=== PATIENT | female | born 1975 | race Caucasian/White ===

== ENCOUNTER 2016-08-21 12:54 | Inpatient (IN) | payer SELFPAY ==
[2016-08-21] MEDS ORDERED: NORMAL SALINE 1000 ML 1,000 ML IV ONE (13:00)
[2016-08-21] MEDS ORDERED: ONDANSETRON HCL INJ/PF 4 MG/2 ML SDV IV ONE (13:01)
--- NOTE | 2016-08-21 13:03 | ER Document Report ---
ED Medical Screen (RME) - General Stated Complaint: CHEST PAIN Mode of Arrival: Ambulatory Information source: Patient Notes: Patient presents to the emergency department with abdominal pain for the past 2 weeks with vomiting diarrhea. Patient reports history of gallstones. Patient reports it feels like a band around her upper epigastric area. Very tender in the right upper quad. Portions lost 15 pounds in the past 2 weeks. patient looks in pain. I have greeted and performed a rapid initial assessment of this patient. A comprehensive ED assessment and evaluation of the patient, analysis of test results and completion of the medical decision making process will be conducted by additional ED providers. TRAVEL OUTSIDE OF THE [place] IN LAST 30 DAYS: No - Related Data Allergies/Adverse Reactions: No Known Allergies Allergy (Verified 08/21/16 12:57) Past Medical History Renal/ Medical History: Reports: Hx Kidney Stones Past Surgical History: Reports: Hx Section - x 2, Hx Tubal Ligation - Immunizations Hx Diphtheria, Pertussis, Tetanus Vaccination: Yes
[2016-08-21 13:24] LABS: ABSOLUTE EOSINOPHILS # (AUTO) 0.1 10^3/uL (0.0-0.6); ABSOLUTE LYMPHOCYTES (AUTO) 2.3 10^3/uL (0.5-4.7); ABSOLUTE MONOCYTES (AUTO) 0.6 10^3/uL (0.1-1.4); ABSOLUTE NEUT (AUTO) 6.4 10^3/uL (1.7-8.2); BASOPHILS % (AUTO) 0.4 % (0-2); EOSINOPHILS % (AUTO) 1.4 % (0-6); HEMATOCRIT 40.3 % (36.0-47.0); HEMOGLOBIN 13.2 g/dL (12.0-15.5); HGB HCT DIFFERENCE -0.7; LYMPHOCYTES % (AUTO) 24.2 % (13-45); MEAN CORPUSCULAR HEMOGLOBIN 25.9 pg (27.0-33.4); MEAN CORPUSCULAR HGB CONC 32.8 g/dL (32.0-36.0); MEAN CORPUSCULAR VOLUME 79 fl (80-97); MONOCYTES % (AUTO) 6.1 % (3-13); RED CELL DISTRIBUTION WIDTH 15.5 % (11.5-14.0); SEGMENTED NEUTROPHILS % (AUTO) 67.9 % (42-78); WHITE BLOOD COUNT 9.4 10^3/uL (4.0-10.5)
[2016-08-21 13:28] LABS: APPEARANCE,URINE CLEAR; BILIRUBIN,URINE NEGATIVE (NEGATIVE); GLUCOSE, URINE NEGATIVE (NEGATIVE); KETONES,URINE TRACE mg/dL (NEGATIVE); LEUKOCYTE ESTERASE,URINE NEGATIVE (NEGATIVE); NITRITE,URINE NEGATIVE (NEGATIVE); PROTEIN,URINE NEGATIVE (NEGATIVE); URINE SPECIFIC GRAVITY 1.008; UROBILINOGEN,URINE NEGATIVE mg/dL (<2.0)
[2016-08-21 13:42] LABS: ALANINE AMINOTRANSFERASE 31 U/L (9-52); ALBUMIN 4.6 g/dL (3.5-5.0); ALKALINE PHOSPHATASE 82 U/L (38-126); ANION GAP 13 (5-19); ASPARTATE AMINO TRANSFERASE 22 U/L (14-36); BILIRUBIN,TOTAL 0.6 mg/dL (0.2-1.3); BLOOD UREA NITROGEN 9 mg/dL (7-20); CALCIUM 9.8 mg/dL (8.4-10.2); CARBON DIOXIDE 25 mmol/L (22-30); CHLORIDE 103 mmol/L (98-107); CREATININE RESULT 0.58 mg/dL (0.52-1.25); GLUCOSE 97 mg/dL (75-110); LIPASE 1005.3 U/L (23-300); POTASSIUM 4.4 mmol/L (3.6-5.0); SODIUM 141.2 mmol/L (137-145); TOTAL PROTEIN 7.8 g/dL (6.3-8.2)
[2016-08-21] MEDS ORDERED: HYDROMORPHONE HCL INJ/PF 2 MG/ML AMPULE IV ONE (14:13)
--- NOTE | 2016-08-21 14:47 | ER Document Report ---
ED General - General Mode of Arrival: Ambulatory TRAVEL OUTSIDE OF THE [place] IN LAST 30 DAYS: No <JANY GARCIA - Last Filed: 08/21/16 16:08> <BENNY MIRELES - Last Filed: 08/21/16 17:09> - General Chief Complaint: Abdominal Pain Stated Complaint: CHEST PAIN - HPI Notes: Patient presents with a 2 month history of right upper quadrant pain and generalized abdominal discomfort that she's had associated with intermittent episodes of postprandial vomiting. She also reports previous constipation earlier in the week and felt briefly obstructed, then had a large bowel movement and now reports mild diarrhea. She reports no recent antibiotics. She denies any fever or cough. Patient does have a known history of gallstones, but has not had her gallbladder removed. (JANY GARCIA) - Related Data Allergies/Adverse Reactions: No Known Allergies Allergy (Verified 08/21/16 12:57) Past Medical History - General Information source: Patient - Social History Smoking Status: Current Every Day Smoker Chew tobacco use (# tins/day): No Frequency of alcohol use: None Drug Abuse: Marijuana Family History: Reviewed & Not Pertinent Patient has suicidal ideation: No Patient has homicidal ideation: No Renal/ Medical History: Reports: Hx Kidney Stones. Denies: Hx Peritoneal Dialysis Past Surgical History: Reports: Hx Section - x 2, Hx Tubal Ligation - Immunizations Hx Diphtheria, Pertussis, Tetanus Vaccination: Yes Hx Pneumococcal Vaccination: 06/11/00 <JANY GARCIA - Last Filed: 08/21/16 16:08> Review of Systems <JANY GARCIA - Last Filed: 08/21/16 16:08> <BENNY MIRELES - Last Filed: 08/21/16 17:09> - Review of Systems Notes: REVIEW OF SYSTEMS: CONSTITUTIONAL : Denies fever, chills, or sweats. Patient does report some recent weight loss. EENT: Denies eye, ear, throat, or mouth pain or symptoms. Denies nasal or sinus congestion or discharge. Denies throat, tongue, or mouth swelling or difficulty swallowing. CARDIOVASCULAR: Denies chest pain. Denies palpitations or racing or irregular heart beat. Denies ankle edema. RESPIRATORY: Denies cough, cold, or chest congestion. Denies shortness of breath, difficulty breathing, or wheezing. GASTROINTESTINAL: No hematemesis no bright red blood per rectum. GENITOURINARY: Denies difficulty urinating, painful urination, burning, frequency, blood in urine, or discharge. FEMALE GENITOURINARY: Denies vaginal bleeding, heavy or abnormal periods, irregular periods. Denies vaginal discharge or odor. MUSCULOSKELETAL: Denies neck pain or stiffness. Denies joint pain or swelling. Patient does report some radiation of the pain through to her back. SKIN: Denies rash, lesions or sores. HEMATOLOGIC : Denies easy bruising or bleeding. LYMPHATIC: Denies swollen, enlarged glands. NEUROLOGICAL: Denies confusion or altered mental status. Denies passing out or loss of consciousness. Denies dizziness or lightheadedness. Denies headache. Denies weakness or paralysis or loss of use of either side. Denies problems with gait or speech. Denies sensory loss, numbness, or tingling. Denies seizures. PSYCHIATRIC: Denies anxiety or stress. Denies depression, suicidal ideation, or homicidal ideation. ALL OTHER SYSTEMS REVIEWED AND NEGATIVE. Dictation was performed using [employer] voice recognition software (JANY GARCIA) Physical Exam <JANY GARCIA - Last Filed: 08/21/16 16:08> <BENNY MIRELES - Last Filed: 08/21/16 17:09> - Vital signs Vitals: Temp Pulse Resp BP Pulse Ox 97.5 F 109 H 16 151/96 H 112 H 08/21/16 12:57 08/21/16 12:57 08/21/16 12:57 08/21/16 12:57 08/21/16 12:57 - Notes Notes: PHYSICAL EXAMINATION: GENERAL: Well-appearing, well-nourished and in no acute distress. HEAD: Atraumatic, normocephalic. EYES: Pupils equal round and reactive to light, extraocular movements intact, conjunctiva are normal. ENT: Nares patent, oropharynx clear without exudates. Moist mucous membranes. NECK: Normal range of motion, supple without lymphadenopathy LUNGS: Breath sounds clear to auscultation bilaterally and equal. No wheezes rales or rhonchi. HEART: Regular rate and rhythm without murmurs ABDOMEN: Soft, tender right upper quadrant with positive Benitez's, but there is also some diffuse discomfort otherwise throughout the abdomen. No rebound or guarding. Female : deferred Musculoskeletal: Normal range of motion, no pitting or edema. No cyanosis. NEUROLOGICAL: Cranial nerves grossly intact. Normal speech, normal gait. Normal sensory, motor exams PSYCH: Normal mood, normal affect. SKIN: Warm, Dry, normal turgor, no rashes or lesions noted. (JANY GARCIA) Course - Laboratory Result Diagrams: 08/21/16 13:05 08/21/16 13:05 <JANY GARCIA - Last Filed: 08/21/16 16:08> - Laboratory Result Diagrams: 08/21/16 13:05 08/21/16 13:05 - Diagnostic Test Radiology reviewed: Image reviewed, Reports reviewed <BENNY MIRELES - Last Filed: 08/21/16 17:09> - Re-evaluation Re-evalutation: 08/21/16 16:05 Pt given IV zofran, Pepcid, dilaudid and normal saline bolus with some relief in her discomfort. Lipase is elevated, and patient does not drink alcohol any more than once per month. Ultrasound is ordered which is pending. Amylase was ordered. If ultrasound is negative, patient may need CT scan of the abdomen. 08/21/16 16:07 Care turned over to Dr. Mireles for further eval and mgmt. 08/21/16 16:10 (JANY GARCIA) 08/21/16 16:53 Took over care from Dr. Jack. 40 -year-old with right upper quadrant abdominal pain, nausea and vomiting. Lipase 1000. Has not had any alcoholic drink for one month. Ultrasound pending. US shows cholelithiasis with positive Benitez's sign. Recommends surgical consultation. Examined patient and she is feeder tender in the right upper quadrant with nausea. Spoke to Dr. Nuñez and will be down to see patient. 08/21/16 17:[address] Nuñez and he has accepted patient as inpatient for further evaluation and treatment of this possible cholecystitis. Recommends nothing by mouth and no antibiotics at this time. Patient's pain under control at this time. (BENNY MIRELES) - Vital Signs Vital signs: Temp Pulse Resp BP Pulse Ox 97.5 F 109 H 16 151/96 H 112 H 08/21/16 12:57 08/21/16 12:57 08/21/16 12:57 08/21/16 12:57 08/21/16 12:57 - Laboratory Laboratory results interpreted by me: 08/21/16 08/21/16 08/21/16 13:05 13:05 13:10 MCV 79 L MCH 25.9 L RDW 15.5 H Lipase 1005.3 H Urine Ketones TRACE H Urine Blood SMALL H - Diagnostic Test Radiology results interpreted by me: AJ US: Cholelithiasis with positive sonographic Benitez sign. Surgical consultation recommended. (BENNY MIRELES) Discharge <JANY GARCIA - Last Filed: 08/21/16 16:08> - Discharge Admitting Provider: Surgicalist - [facility] Unit Admitted: Surgical Floor <BENNY MIRELES - Last Filed: 08/21/16 17:09> - Discharge Clinical Impression: Cholecystitis Pancreatitis Qualifiers: Chronicity: acute Pancreatitis type: unspecified pancreatitis type Acute pancreatitis complication: unspecified Qualified Code(s): K85.90 - Acute pancreatitis without necrosis or infection, unspecified Condition: Stable Disposition: ADMITTED INPATIENT Referrals: MARIA TERESA UGALDE MD [Primary Care Provider] - Follow up as needed
[2016-08-21] MEDS ORDERED: FAMOTIDINE INJ/PF 20 MG/2 ML SDV IV ONE (16:07)
--- NOTE | 2016-08-21 21:25 | PDOC H&P ---
History of Present Illness Admission Date/PCP: 08/21/16 17:35 MARIA TERESA UGALDE MD History of Present Illness: HAILY COATES is a 40 year old female who presents to the emergency department separately history of abdominal pain week, epigastric, radiating to the back more right upper quadrant than left. This is associated with multiple episodes of vomiting. Patient has a known history of gallstones. She drank alcohol heavily until 2 months ago. She is never been diagnosed with pancreatitis. She seems emergency department where she is complaining of back pain. Was found to have a lipase level greater than thousand and gallstones by ultrasound. Liver function studies otherwise normal. hAs a family history of gallbladder disease. Surgery was consulted, and she was advised admission. Past Surgical History Past Surgical History: Reports: Section - x 2, Tubal Ligation Social History Smoking Status: Current Every Day Smoker Family History Family History: Reviewed & Not Pertinent Parental Family History Reviewed: Yes Children Family History Reviewed: Yes Sibling(s) Family History Reviewed.: Yes Medication/Allergy Home Medications: No Home Medications 08/21/16 Allergies/Adverse Reactions: No Known Allergies Allergy (Verified 08/21/16 12:57) Physical Exam Vital Signs: Temp Pulse Resp BP Pulse Ox 97.8 F 88 14 147/82 H 97 08/21/16 20:04 08/21/16 20:04 08/21/16 20:04 08/21/16 20:04 08/21/16 20:04 General appearance: PRESENT: mild distress Head exam: PRESENT: normocephalic Eye exam: PRESENT: EOMI Ear exam: PRESENT: normal external ear exam Mouth exam: PRESENT: moist Neck exam: PRESENT: full ROM Respiratory exam: PRESENT: chest wall tenderness Cardiovascular exam: PRESENT: RRR Pulses: PRESENT: normal radial pulses GI/Abdominal exam: PRESENT: other - Tender in the right upper quadrant with mild guarding; no organomegaly. Musculoskeletal exam: PRESENT: full ROM Focused psych exam: PRESENT: restlessness Skin exam: PRESENT: other - Multiple tattoos Results Impressions: Abdomen Ultrasound 08/21/16 13:02 IMPRESSION: Cholelithiasis. Positive Benitez's sign may indicate cholecystitis. Surgical consultation is recommended. Surgeons remarks-no evidence of intra-or extrahepatic ductal dilatation, fluid. Assessment & Plan - Diagnosis (1) Cholecystitis Is this a current diagnosis for this admission?: YesPlan: Associated with cholelithiasis, strong family history. Interval laparoscopic, possible open cholecystectomy once lipase level stabilizes. We'll also repeat liver function studies in the morning. (2) Pancreatitis Qualifiers: Chronicity: acute Pancreatitis type: unspecified pancreatitis type Acute pancreatitis complication: unspecified Qualified Code(s): K85.90 - Acute pancreatitis without necrosis or infection, unspecified Is this a current diagnosis for this admission?: YesPlan: First episode, uncomplicated by history and radiographic imaging although limited. Possibly related to chronic alcohol use although gallstone pancreatitis is a possibility, (3) Smoker Is this a current diagnosis for this admission?: YesPlan: 1. Needs to quit. - Time Time Spent: 50 to 70 Minutes Critical Time spent with patient: 15-24 minutes Medications reviewed and adjusted accordingly: Yes Anticipated discharge: Home - Inpatient Certification Based on my medical assessment, after consideration of the patient's comorbidities, presenting symptoms, or acuity I expect that the services needed warrant INPATIENT care.: Yes I certify that my determination is in accordance with my understanding of Medicare's requirements for reasonable and necessary INPATIENT services [42 CFR 412.3e].: Yes Medical Necessity: Need For IV Fluids, Need for Pain Control, Need for IV Antibiotics, Need for Surgery
[2016-08-21] MEDS ORDERED: RINGERS SOLUTION,LACTATED 1,000 ML IV PRN (21:27)
[2016-08-21] MEDS: FAMOTIDINE INJ/PF 20 MG/2 ML SDV IV SCH (22:15)
[2016-08-21] MEDS: ONDANSETRON HCL INJ/PF 4 MG/2 ML SDV IV PRN (22:23)
[2016-08-21] MEDS: MORPHINE SULFATE 10 MG/ML INJ IV PRN (23:21)
[2016-08-22 05:51] LABS: ALBUMIN 3.8 g/dL (3.5-5.0); BILIRUBIN,TOTAL 0.7 mg/dL (0.2-1.3); LIPASE 339.9 U/L (23-300); TOTAL PROTEIN 6.4 g/dL (6.3-8.2)
--- NOTE | 2016-08-22 07:39 | Physician Advisory Note ---
Physician Advisor ProgressNote .: Pursuant to the plan for [facility], I have reviewed the medical record for this patient. Physician Advisor Statement: Possible documentation opportunities if attending agrees: 1. "pancreatitis" - please state whether Acute, Chronic, or Ac on Chronic As always, please document each day the potential clinical problems you are concerned could occur if pt not kept in hospital for tx at this time. Status: Tx in inpatient hospital setting medically reasonable & necessary to protect pt' s health, safety, & medical condition? Thanks for your help with documentation accuracy/specificity improvement! CK
[2016-08-22] MEDS: MORPHINE SULFATE 10 MG/ML INJ IV PRN (08:31)
[2016-08-22] MEDS: FAMOTIDINE INJ/PF 20 MG/2 ML SDV IV SCH ×2 (09:14→21:34)
[2016-08-22] MEDS ORDERED: CEFOXITIN SODIUM 2 GM in DEXTROSE 5%-WATER 100 ML IV PRN (09:53)
[2016-08-22] MEDS: RINGERS SOLUTION,LACTATED 1,000 ML IV PRN ×2 (11:04→21:12)
[2016-08-22] MEDS: ONDANSETRON HCL INJ/PF 4 MG/2 ML SDV IV PRN ×2 (11:09→18:50)
[2016-08-22] MEDS: KETOROLAC TROMETHAMINE INJ/PF 30 MG/1 ML SDV IV PRN ×2 (12:52→18:50)
--- NOTE | 2016-08-22 18:13 | PROGRESS NOTE E ---
Progress Note NAME: HAILY COATES : 1975 AGE: 40Y DATE: 08/22/16 ROOM: 424 SUBJECTIVE: The patient is a 40-year-old female who presents with epigastric and right upper quadrant abdominal pain. She has had longstanding intermittent abdominal pain in this region for at least the last year, but now has become constant. She had an abdominal ultrasound which revealed gallstones and positive Benitez's sign. She had normal liver function tests with a lipase on admission of 1000, decreasing now to 340. The patient continues to have complaints of pain in the right upper quadrant mainly now. OBJECTIVE: The patient has tenderness in the right upper quadrant. DIAGNOSTIC DATA: Lipase 340. ASSESSMENT: Abdominal pain, probably related to 2 processes, being mild pancreatitis that is improving and possible hydrops/acute cholecystitis being present. I would recommend continued IV hydration and to allow the pancreatitis to fully resolve. This should be in the next 24 hours. Then, I would recommend that she undergo a laparoscopic cholecystectomy with intraoperative cholangiogram and possible laparotomy. The risks and complications of the procedure have been explained to her and include but are not limited to bleeding, infection, anesthesia risk, heart and lung problems, wound healing problems, pancreatitis, injuries to abdominal structures such as intestine or common bile duct, causing major morbidity and need for further intervention, wound healing problems, hernia formation, continued symptoms, anesthesia risks, heart and lung problems. She accepts the risks and wishes to proceed with the surgery. PLAN: 1. NPO. 2. IV fluids. 3. Follow up lipase in the morning. If things continue to look well, then proceed with surgery. DICTATING PHYSICIAN: AYANA POWELL M.D. [id number] PHY#: [id number] ID: [id number] JOB#: [id number] ACCT: [id number] cc: >
[2016-08-23] MEDS: ONDANSETRON HCL INJ/PF 4 MG/2 ML SDV IV PRN ×2 (04:36→21:56)
[2016-08-23] MEDS: KETOROLAC TROMETHAMINE INJ/PF 30 MG/1 ML SDV IV PRN ×2 (04:37→20:36)
[2016-08-23 04:49] LABS: ABSOLUTE BASOPHILS # (AUTO) 0.1 10^3/uL (0.0-0.2); ABSOLUTE EOSINOPHILS # (AUTO) 0.1 10^3/uL (0.0-0.6); ABSOLUTE LYMPHOCYTES (AUTO) 2.4 10^3/uL (0.5-4.7); ABSOLUTE MONOCYTES (AUTO) 0.7 10^3/uL (0.1-1.4); ABSOLUTE NEUT (AUTO) 3.6 10^3/uL (1.7-8.2); BASOPHILS % (AUTO) 0.8 % (0-2); EOSINOPHILS % (AUTO) 2.1 % (0-6); HEMATOCRIT 34.5 % (36.0-47.0); HEMOGLOBIN 11.4 g/dL (12.0-15.5); HGB HCT DIFFERENCE -0.3; MEAN CORPUSCULAR HEMOGLOBIN 25.8 pg (27.0-33.4); MEAN CORPUSCULAR HGB CONC 33.1 g/dL (32.0-36.0); MEAN CORPUSCULAR VOLUME 78 fl (80-97); MONOCYTES % (AUTO) 9.5 % (3-13); RED BLOOD COUNT 4.42 10^6/uL (3.72-5.28); RED CELL DISTRIBUTION WIDTH 15.5 % (11.5-14.0); SEGMENTED NEUTROPHILS % (AUTO) 52.6 % (42-78); WHITE BLOOD COUNT 6.9 10^3/uL (4.0-10.5)
[2016-08-23 05:18] LABS: ALANINE AMINOTRANSFERASE 31 U/L (9-52); ALBUMIN 3.6 g/dL (3.5-5.0); ALKALINE PHOSPHATASE 59 U/L (38-126); ANION GAP 11 (5-19); ASPARTATE AMINO TRANSFERASE 18 U/L (14-36); BILIRUBIN,TOTAL 0.6 mg/dL (0.2-1.3); BLOOD UREA NITROGEN 7 mg/dL (7-20); CALCIUM 9.3 mg/dL (8.4-10.2); CARBON DIOXIDE 25 mmol/L (22-30); CHLORIDE 105 mmol/L (98-107); CREATININE RESULT 0.55 mg/dL (0.52-1.25); GLUCOSE 83 mg/dL (75-110); LIPASE 276.2 U/L (23-300); POTASSIUM 4.3 mmol/L (3.6-5.0); SODIUM 140.5 mmol/L (137-145); TOTAL PROTEIN 6.3 g/dL (6.3-8.2)
[2016-08-23] MEDS ORDERED: SUCCINYLCHOLINE CHLORIDE INJ 200 MG/10 ML VIAL ONE (08:04)
[2016-08-23] MEDS ORDERED: ROCURONIUM BROMIDE INJ 50 MG/5 ML VIAL IV ONE (08:04)
[2016-08-23] MEDS ORDERED: KETOROLAC TROMETHAMINE 60 MG/2 ML SDV ONE (08:04)
[2016-08-23] MEDS ORDERED: ONDANSETRON HCL INJ/PF 4 MG/2 ML SDV ONE (08:04)
[2016-08-23] MEDS ORDERED: GLYCOPYRROLATE INJ 0.4 MG/2 ML VIAL ONE (08:04)
[2016-08-23] MEDS ORDERED: LIDOCAINE 2% INJ-PF (20 MG/ML) 10 ML AMPUL ONE (08:04)
[2016-08-23] MEDS ORDERED: DEXAMETHASONE SOD PHOSPHATE INJ 4 MG/1 ML VIAL ONE (08:04)
[2016-08-23] MEDS ORDERED: METOCLOPRAMIDE HCL INJ/PF 10 MG/2 ML SDV ONE (08:04)
[2016-08-23] MEDS ORDERED: NEOSTIGMINE METHYLSULFATE 10 MG/10 ML VIAL ONE (08:04)
[2016-08-23] MEDS ORDERED: CEFOXITIN INJ 1 GM VIAL IV ONE (09:00)
[2016-08-23] MEDS: FAMOTIDINE INJ/PF 20 MG/2 ML SDV IV SCH ×2 (09:31→21:56)
[2016-08-23] MEDS: CEFOXITIN SODIUM 2 GM in DEXTROSE 5%-WATER 100 ML IV PRN ×2 (11:23→16:00)
[2016-08-23] MEDS: RINGERS SOLUTION,LACTATED 1,000 ML IV PRN (11:28)
[2016-08-23] MEDS ORDERED: ALBUTEROL SULFATE 0.083% NEB 2.5 MG/3 ML AMPUL NEB ONE (13:53)
[2016-08-23] MEDS ORDERED: MIDAZOLAM 2 MG/2 ML INJ ONE ×2 (13:53→15:33)
[2016-08-23] MEDS ORDERED: HYDROMORPHONE HCL INJ/PF 2 MG/ML AMPULE ONE (15:33)
[2016-08-23] MEDS ORDERED: FENTANYL CITRATE INJ/PF 100 MCG/2 ML AMPUL ONE (15:33)
[2016-08-23] MEDS ORDERED: PROPOFOL INJ 200 MG/20 ML VIAL IV ONE (15:34)
[2016-08-23] MEDS ORDERED: ACETAMINOPHEN 100 ML IV ONE (15:34)
[2016-08-23] MEDS ORDERED: BUPIVACAINE HCL 0.25 % INJ/PF (2.5 MG/1 ML) 30 ML VIAL ONE (15:36)
[2016-08-23] MEDS ORDERED: CEFOXITIN 1 GM/D5W RTU 1 GM/50 ML RTUPB IV ONE (16:17)
[2016-08-23] MEDS ORDERED: FENTANYL CITRATE INJ/PF 100 MCG/2 ML AMPUL IV PRN (16:34)
[2016-08-23] MEDS ORDERED: DIPHENHYDRAMINE HCL 50 MG/ML VIAL IV PRN (16:34)
[2016-08-23] MEDS ORDERED: ONDANSETRON HCL INJ/PF 4 MG/2 ML SDV IV PRN (16:34)
[2016-08-23] MEDS ORDERED: HYDROCODONE/ACETAMINOPHEN 5-325 MG TABLET PO PRN (17:04)
--- NOTE | 2016-08-23 17:43 | OPERATIVE REPORT E ---
Operative Report NAME: HAILY COATES : 1975 AGE: 40Y DATE OF SURGERY: 08/23/16 ROOM: 424 PREOPERATIVE DIAGNOSIS: Gallstone pancreatitis. POSTOPERATIVE DIAGNOSIS: Gallstone pancreatitis. OPERATION: Laparoscopic cholecystectomy with intraoperative cholangiogram. SURGEON: AYANA POWELL M.D. ANESTHESIA: General. INDICATION FOR PROCEDURE: The patient is a 40-year-old female who presents with epigastric and right upper quadrant abdominal pain. She comes to the emergency room. An ultrasound of the abdomen was obtained, which showed the gallbladder with gallstones. She had elevated lipase at 1000. She was watched for several days with her pain resolving and her lipase normalizing. She is now ready to undergo a laparoscopic cholecystectomy with intraoperative cholangiogram. FINDINGS AT SURGERY: The patient had a gallbladder containing numerous gallstones. She had normal intraoperative cholangiogram without any filling defects being present in the biliary tree. PROCEDURE: After informed consent was obtained, the patient was taken to the operating room and placed in supine position. General endotracheal anesthesia was administered. The patient's abdomen was then prepped and draped in the usual sterile fashion. Prior to making any abdominal incision, the skin was injected with 0.25% Marcaine. An infraumbilical incision was made in the skin using a scalpel. A 5 mm Optiview trocar was then inserted through the incision, through the fascia and into the abdominal cavity under direct vision. The abdomen was then insufflated. Three 5 mm ports were then placed in the right upper quadrant, and a 12 mm port exchanged for the 5 mm port at the umbilicus under direct vision. Gallbladder fundus was then grasped and lifted anterior and superiorly, exposing the triangle of Calot. The peritoneum was then scored and the cystic duct identified. This was dissected free from surrounding structures. Cystic artery was identified, isolated, clipped proximally and distally and then being divided. Critical view had been obtained. Clip was then placed across the cystic duct/gallbladder junction and incision was then made in the cystic duct. The cholangiogram catheter was introduced and the cholangiogram was then performed. The cholangiogram was normal. The catheter was then removed and clips were then placed distally and along the cystic duct with it then being divided. The gallbladder was then dissected off the gallbladder bed using electrocautery. Placed an Endobag and removed through the umbilical port. The right upper quadrant was thoroughly irrigated and return fluid was clear. There was no bleeding noted from the gallbladder bed. The ports were then removed and no bleeding was noted at the port sites with the abdomen then being desufflated. The umbilical fascial defect was closed using #0 Vicryl suture. Skin incisions were closed using 4-0 Monocryl subcuticular stitch. Dermabond was then applied. The patient was then awakened, extubated, and taken from the operating room in stable condition. Estimated blood loss was less than 5 mL. Complications: None. Condition of the patient at the end of the procedure: Stable. Specimen: Gallbladder and gallstones. Drains/packs: None. The wound is clean. DICTATING PHYSICIAN: AYANA POWELL M.D. [id number] PHY#: [id number] ID: [id number] JOB#: [id number] ACCT: [id number] cc:AYANA POWELL M.D. >
[2016-08-23] MEDS: DIPHENHYDRAMINE HCL 50 MG/ML VIAL IV PRN (20:08)
[2016-08-23] MEDS: HYDROCODONE/ACETAMINOPHEN 5-325 MG TABLET PO PRN (21:57)
[2016-08-23] MEDS: HYDROMORPHONE HCL INJ/PF 2 MG/ML AMPULE IV PRN (23:22)
[2016-08-24] MEDS: HYDROMORPHONE HCL INJ/PF 2 MG/ML AMPULE IV PRN ×5 (01:49→21:25)
[2016-08-24] MEDS: ONDANSETRON HCL INJ/PF 4 MG/2 ML SDV IV PRN ×2 (04:06→19:30)
[2016-08-24] MEDS: HYDROCODONE/ACETAMINOPHEN 5-325 MG TABLET PO PRN (08:19)
[2016-08-24] MEDS: FAMOTIDINE INJ/PF 20 MG/2 ML SDV IV SCH ×2 (08:20→21:18)
[2016-08-24] MEDS: DIPHENHYDRAMINE HCL 50 MG/ML VIAL IV PRN (09:48)
[2016-08-24] MEDS ORDERED: DEXTROSE 5%-1/2 NORMAL SALINE 1,000 ML IV PRN (11:39)
--- NOTE | 2016-08-24 11:49 | PDOC PROGRESS REPORT ---
Subjective Progress Note for:: 08/24/16 Subjective:: Recurrent upper abdominal pain similar to her presenting complaints. Physical Exam Vital Signs: Temp Pulse Resp BP Pulse Ox 97.9 F 93 18 135/86 H 100 08/24/16 07:18 08/24/16 07:18 08/24/16 07:18 08/24/16 07:18 08/24/16 07:18 Intake & Output 08/23/16 08/24/16 08/25/16 06:59 06:59 06:59 Intake Total 1650 6000 Output Total 605 Balance 1650 5395 Weight 91.7 kg 92.8 kg General appearance: PRESENT: no acute distress, cooperative Respiratory exam: PRESENT: clear to auscultation alfonso Cardiovascular exam: PRESENT: RRR GI/Abdominal exam: PRESENT: other - Soft, mildly distended, tender across the upper abdomen without peritoneal signs. Extremities exam: PRESENT: other - No swelling no tenderness. Results Laboratory Results: 08/23/16 04:10 08/23/16 04:10 Impressions: Abdomen Ultrasound 08/21/16 13:02 IMPRESSION: Cholelithiasis. Positive Benitez's sign may indicate cholecystitis. Surgical consultation is recommended. Chest X-Ray 08/23/16 00:00 IMPRESSION: NO ACUTE RADIOGRAPHIC FINDING IN THE CHEST. Cholangiogram 08/23/16 00:00 IMPRESSION: INTRAOPERATIVE CHOLANGIOGRAM. Fluoroscopy 08/23/16 00:00 IMPRESSION: INTRAOPERATIVE CHOLANGIOGRAM. Assessment & Plan - Diagnosis (2) Pancreatitis Qualifiers: Chronicity: acute Pancreatitis type: unspecified pancreatitis type Acute pancreatitis complication: unspecified Qualified Code(s): K85.90 - Acute pancreatitis without necrosis or infection, unspecified Is this a current diagnosis for this admission?: YesPlan: Status post laparoscopic cholecystectomy and intraoperative cholangiogram that was negative yesterday. Patient has recurrent upper abdominal pain. Suspicious for recurrent pancreatitis. Will make the patient nothing by mouth Place her on IV fluids repeat her labs. Will discharge the patient home when ever her pancreatitis and her abdominal pain has the improved.
[2016-08-24 13:04] LABS: ALANINE AMINOTRANSFERASE 44 U/L (9-52); ALBUMIN 4.4 g/dL (3.5-5.0); ALKALINE PHOSPHATASE 73 U/L (38-126); ANION GAP 11 (5-19); ASPARTATE AMINO TRANSFERASE 33 U/L (14-36); BILIRUBIN,TOTAL 0.4 mg/dL (0.2-1.3); BLOOD UREA NITROGEN 9 mg/dL (7-20); CALCIUM 10.5 mg/dL (8.4-10.2); CARBON DIOXIDE 23 mmol/L (22-30); CHLORIDE 101 mmol/L (98-107); CREATININE RESULT 0.64 mg/dL (0.52-1.25); GLUCOSE 98 mg/dL (75-110); LIPASE 193.8 U/L (23-300); POTASSIUM 4.4 mmol/L (3.6-5.0); SODIUM 135.4 mmol/L (137-145); TOTAL PROTEIN 7.2 g/dL (6.3-8.2)
[2016-08-24] MEDS ORDERED: BISACODYL 10 MG SUPP.RECT PR ONE (19:45)
[2016-08-24] MEDS: KETOROLAC TROMETHAMINE INJ/PF 30 MG/1 ML SDV IV PRN (23:51)
[2016-08-25] MEDS: FAMOTIDINE INJ/PF 20 MG/2 ML SDV IV SCH (09:16)
[2016-08-25] MEDS: KETOROLAC TROMETHAMINE INJ/PF 30 MG/1 ML SDV IV PRN (09:17)
[2016-08-25] MEDS ORDERED: KETOROLAC TROMETHAMINE INJ/PF 30 MG/1 ML SDV IV PRN (09:29)
--- NOTE | 2016-08-25 09:58 | PROGRESS NOTE E ---
Progress Note NAME: HAILY COATES : 1975 AGE: 40Y DATE: 08/25/2016 ROOM: 424 SUBJECTIVE: She is about 2 days post lap choley. She vomited last night but early this morning had a bowel movement and she has not tried taking liquids again. We will try her on liquids this morning and if she tolerates, we can try to advance it and if she tolerates that, she can be discharged today. However, if she is not able tolerate soft diet, we might have to keep her another day and hold off giving her narcotics. We will try to give her Toradol today and discharge possibly on tramadol. DICTATING PHYSICIAN: LORENA CAMPBELL M.D. [id number] PHY#: [id number] ID: [id number] JOB#: [id number] ACCT: [id number] cc: >
[2016-08-25] MEDS ORDERED: TRAMADOL HCL 50 MG TABLET PO PRN (14:58)
--- NOTE | 2016-08-25 19:53 | DISCHARGE SUMMARY E ---
Discharge Summary NAME: HAILY COATES : 1975 AGE: 40Y ADMITTED: 08/22/2016 DISCHARGED: FINAL DIAGNOSIS: Gallstone pancreatitis. SUMMARY: This is a 40-year-old female who came in with abdominal pains and noted to have gallstones with elevated lipase. Her lipase was trending down, and a laparoscopic cholecystectomy with intraoperative cholangiogram was then performed by Dr. Leonard Tucker on 08/23/16. Postoperatively, she is doing very well. Her lipase continued to go down. She remained afebrile and today tolerated soft diet for the first time. She is comfortable with minimal discomfort. All the incision sites are noted to be clean and dry. Discomfort is primarily along the right upper quadrant, but minimal tenderness. She was then discharged on 08/25/16, to be followed up in the office of [facility] in about 2 weeks. A prescription for tramadol was given to take 1 every 8 hours as needed for pain. She is advised not to do any lifting for the next week. She can shower starting tonight if she wants. For any symptoms of fever, nausea, vomiting, or jaundice, to come to the emergency room right away. DICTATING PHYSICIAN: LORENA CAMPBELL M.D. [id number] PHY#: [id number] ID: [id number] JOB#: [id number] ACCT: [id number] cc:LORENA CAMPBELL M.D. JOAQUIN BUTLER N.P. >
[2016-08-25 20:12] VITALS: BP 152/66
== END 2016-08-25 20:30 | disposition home or self-care (01) | DRG 418 ==
LOC: ER 12:54 → UNDOADMOB 17:35 → EH 17:35 → INTOOBSV 17:35 → EH 21:25 → 4S 23:00 → OBSVTOIN 08-22 17:59
PROVIDERS: ADMIT Surgery; ATTEND Surgery
PROC: 0FT44ZZ Resection of Gallbladder, Percutaneous Endoscopic Approach (ICD-10-PCS; principal; 2016-08-22)
PROC: BF131ZZ Fluoroscopy of Gallbladder and Bile Ducts using Low Osmolar Contrast (ICD-10-PCS; 2016-08-22)
DX: K85.10 Biliary acute pancreatitis without necrosis or infection (principal); K80.00 Calculus of gallbladder with acute cholecystitis without obstruction; F17.210 Nicotine dependence, cigarettes, uncomplicated
CPT/HCPCS: 36415; 71010; 74300; 76705; 790; 80053; 80076; 81001; 82150; 83605; 83690; 84703; 85025; 88304; 96361; 96374; 96375; 99285; G0378; J0131; J0330; J0694; J1100; J1170; J1200; J1885; J2250; J2270; J2405; J2704; J2765; J3010; J3490; J7030; J7120; S0028

== ENCOUNTER 2017-12-02 05:00 | Emergency (ER) | payer SELFPAY ==
[2017-12-02] MEDS ORDERED: KETOROLAC TROMETHAMINE INJ/PF 30 MG/1 ML SDV IV ONE (05:25)
[2017-12-02] MEDS ORDERED: ONDANSETRON 4 MG TAB.RAPDIS PO ONE (05:25)
--- NOTE | 2017-12-02 05:33 | ER Document Report ---
ED Medical Screen (RME) - General Chief Complaint: Flank Pain Stated Complaint: FLANK PAIN/URINARY PAIN Time Seen by Provider: 12/02/17 05:26 TRAVEL OUTSIDE OF THE [place] IN LAST 30 DAYS: No - HPI Notes: 12/02/17 05:32 Dysuria left flank pain and suprapubic pressure with nausea vomiting history of stones and states feels slightly different 12/02/17 05:33 - Related Data Allergies/Adverse Reactions: No Known Allergies Allergy (Verified 08/21/16 12:57) Past Medical History Renal/ Medical History: Reports: Hx Kidney Stones. Denies: Hx Peritoneal Dialysis Past Surgical History: Reports: Hx Section - x 2, Hx Tubal Ligation - Immunizations Hx Diphtheria, Pertussis, Tetanus Vaccination: Yes Review of Systems - Review of Systems Genitourinary: Dysuria, Flank pain Physical Exam - Vital signs Vitals: Temp Pulse Resp BP Pulse Ox 98.4 F 68 20 122/75 98 12/02/17 05:12 12/02/17 05:12 12/02/17 05:12 12/02/17 05:12 12/02/17 05:12 - General Notes: Patient looks uncomfortable - Respiratory Respiratory status: No respiratory distress Course - Re-evaluation Re-evalutation: 12/02/17 05:33 I have greeted and performed a rapid initial assessment of this patient. A comprehensive ED assessment and evaluation of the patient, analysis of test results and completion of the medical decision making process will be conducted by additional ED providers. - Vital Signs Vital signs: Temp Pulse Resp BP Pulse Ox 98.4 F 68 20 122/75 98 12/02/17 05:12 12/02/17 05:12 12/02/17 05:12 12/02/17 05:12 12/02/17 05:12 Doctor's Discharge - Discharge Referrals: MARIA TERESA UGALDE MD [Primary Care Provider] - Follow up as needed
[2017-12-02] MEDS ORDERED: NORMAL SALINE 1000 ML 1,000 ML IV ONE ×2 (05:37)
[2017-12-02 05:45] LABS: ABSOLUTE BASOPHILS # (AUTO) 0.1 10^3/uL (0.0-0.2); ABSOLUTE EOSINOPHILS # (AUTO) 0.2 10^3/uL (0.0-0.6); ABSOLUTE LYMPHOCYTES (AUTO) 2.6 10^3/uL (0.5-4.7); ABSOLUTE MONOCYTES (AUTO) 0.8 10^3/uL (0.1-1.4); ABSOLUTE NEUT (AUTO) 9.1 10^3/uL (1.7-8.2); BASOPHILS % (AUTO) 0.4 % (0-2); EOSINOPHILS % (AUTO) 1.3 % (0-6); HEMATOCRIT 40.2 % (36.0-47.0); HEMOGLOBIN 13.2 g/dL (12.0-15.5); LYMPHOCYTES % (AUTO) 20.1 % (13-45); MEAN CORPUSCULAR HEMOGLOBIN 26.3 pg (27.0-33.4); MEAN CORPUSCULAR HGB CONC 32.8 g/dL (32.0-36.0); MEAN CORPUSCULAR VOLUME 80 fl (80-97); MONOCYTES % (AUTO) 6.5 % (3-13); PLATELET COUNT 371 10^3/uL (150-450); RED CELL DISTRIBUTION WIDTH 15.4 % (11.5-14.0); SEGMENTED NEUTROPHILS % (AUTO) 71.7 % (42-78); TOTAL CELLS COUNTED % (AUTO) 100 %; WHITE BLOOD COUNT 12.7 10^3/uL (4.0-10.5)
[2017-12-02 06:14] LABS: ALANINE AMINOTRANSFERASE 25 U/L (9-52); ALBUMIN 4.2 g/dL (3.5-5.0); ALKALINE PHOSPHATASE 63 U/L (38-126); ANION GAP 12 (5-19); ASPARTATE AMINO TRANSFERASE 27 U/L (14-36); BILIRUBIN,DIRECT 0.3 mg/dL (0.0-0.4); BILIRUBIN,TOTAL 0.3 mg/dL (0.2-1.3); BLOOD UREA NITROGEN 13 mg/dL (7-20); CALCIUM 9.4 mg/dL (8.4-10.2); CARBON DIOXIDE 25 mmol/L (22-30); CHLORIDE 108 mmol/L (98-107); GLUCOSE 134 mg/dL (75-110); POTASSIUM 3.6 mmol/L (3.6-5.0); SODIUM 144.6 mmol/L (137-145)
[2017-12-02 06:17] LABS: APPEARANCE,URINE SLIGHTLY-CLOUDY; BILIRUBIN,URINE NEGATIVE (NEGATIVE); COLOR,URINE YELLOW; GLUCOSE, URINE NEGATIVE (NEGATIVE); KETONES,URINE NEGATIVE (NEGATIVE); LEUKOCYTE ESTERASE,URINE NEGATIVE (NEGATIVE); NITRITE,URINE NEGATIVE (NEGATIVE); PROTEIN,URINE 30 mg/dL (NEGATIVE); URINE SPECIFIC GRAVITY 1.026
--- NOTE | 2017-12-02 06:33 | ER Document Report ---
ED General - General Chief Complaint: Flank Pain Stated Complaint: FLANK PAIN/URINARY PAIN Time Seen by Provider: 12/02/17 05:26 Mode of Arrival: Ambulatory Information source: Patient Notes: 41-year-old female presents emergency department with complaints of left flank pain, nausea, dysuria for the last 2 days. Patient states that she has a history of kidney stones but thinks that this feels slightly different. She states that her last kidney stone was 2 years ago. Patient states that she is having a lot of suprapubic pressure. She states that she just started her menstrual period yesterday. Patient describes her pain as a dull aching sensation. She states that the pain starts in the left flank and radiates to the left lower quadrant and suprapubic area. She denies any alleviating or exacerbating factors. Patient denies any abnormal vaginal discharge. She is not concerned about STDs. TRAVEL OUTSIDE OF THE [place] IN LAST 30 DAYS: No - HPI Patient complains to provider of: Left flank pain Onset: Last week Onset/Duration: Gradual Quality of pain: Achy, Dull Severity: Moderate Pain Level: 3 Associated symptoms: Nausea Exacerbated by: Denies Relieved by: Denies Similar symptoms previously: Yes Recently seen / treated by doctor: No - Related Data Allergies/Adverse Reactions: No Known Allergies Allergy (Verified 08/21/16 12:57) Past Medical History - General Information source: Patient - Social History Smoking Status: Never Smoker Family History: Reviewed & Not Pertinent Patient has suicidal ideation: No Patient has homicidal ideation: No Renal/ Medical History: Reports: Hx Kidney Stones. Denies: Hx Peritoneal Dialysis Past Surgical History: Reports: Hx Section - x 2, Hx Tubal Ligation - Immunizations Hx Diphtheria, Pertussis, Tetanus Vaccination: Yes Hx Pneumococcal Vaccination: 06/11/00 Review of Systems - Review of Systems Constitutional: No symptoms reported EENT: No symptoms reported Cardiovascular: No symptoms reported Respiratory: No symptoms reported Gastrointestinal: Abdominal pain, Nausea Genitourinary: Burning, Dysuria Female Genitourinary: No symptoms reported Musculoskeletal: No symptoms reported Skin: No symptoms reported Neurological/Psychological: No symptoms reported -: Yes All other systems reviewed and negative Physical Exam - Vital signs Vitals: Temp Pulse Resp BP Pulse Ox 98.4 F 68 20 122/75 98 12/02/17 05:12 12/02/17 05:12 12/02/17 05:12 12/02/17 05:12 12/02/17 05:12 Interpretation: Normal - Notes Notes: PHYSICAL EXAMINATION: GENERAL: Well-appearing, well-nourished and in no acute distress. HEAD: Atraumatic, normocephalic. EYES: Pupils equal round and reactive to light, extraocular movements intact, conjunctiva are normal. ENT: Nares patent, oropharynx clear without exudates. Moist mucous membranes. NECK: Normal range of motion, supple without lymphadenopathy LUNGS: Breath sounds clear to auscultation bilaterally and equal. No wheezes rales or rhonchi. HEART: Regular rate and rhythm without murmurs ABDOMEN: Soft, tender to palpation in the left flank, left lower quadrant, suprapubic area. Nondistended abdomen. No guarding, no rebound. No masses appreciated. Female : deferred Musculoskeletal: Normal range of motion, no pitting or edema. No cyanosis. NEUROLOGICAL: Cranial nerves grossly intact. Normal speech, normal gait. Normal sensory, motor exams PSYCH: Normal mood, normal affect. SKIN: Warm, Dry, normal turgor, no rashes or lesions noted. Course - Re-evaluation Re-evalutation: 12/02/17 08:48 Patient feeling better on reevaluation. Pain has dulled. Nausea has resolved. Labs and imaging obtained. Patient has a 1 millimeter distal left ureteral calculus. This is likely what is causing the patient's discomfort. I will discharge the patient home with a prescription for Zofran, [place], Tamsulosin. Stone will pass on its own. Patient instructed to take the medication as directed, to follow-up with her primary care physician this week, and to return to the emergency department for any worsening symptoms. Patient is agreeable with plan of care. - Vital Signs Vital signs: Temp Pulse Resp BP Pulse Ox 98.4 F 68 20 122/75 98 12/02/17 05:12 12/02/17 05:12 12/02/17 05:12 12/02/17 05:12 12/02/17 05:12 - Laboratory Result Diagrams: 12/02/17 05:32 12/02/17 05:32 Laboratory results interpreted by me: 12/02/17 12/02/17 12/02/17 05:32 05:32 05:48 WBC 12.7 H MCH 26.3 L RDW 15.4 H Absolute Neutrophils 9.1 H Chloride 108 H Glucose 134 H Urine Protein 30 H Urine Blood LARGE H Urine Urobilinogen 2.0 H Discharge - Discharge Clinical Impression: Ureteral stone Condition: Good Disposition: HOME, SELF-CARE Instructions: Kidney Stone ([facility]) Prescriptions: Ondansetron [Zofran Odt 4 mg Tablet] 1 - 2 tab PO Q4HP PRN #10 tab.rapdis PRN Reason: Hydrocodone/Acetaminophen [Syosset 5-325 mg Tablet] 1 tab PO Q4 PRN #10 tablet PRN Reason: Tamsulosin HCl 0.4 mg PO DAILY #7 cap.er.24h Referrals: MARIA TERESA UGALDE MD [ACTIVE STAFF] - Follow up as needed
--- NOTE | 2017-12-02 08:25 | RADIOLOGY REPORT (SQ) ---
EXAM DESCRIPTION: CT ABD/PELVIS NO ORAL OR IV COMPLETED DATE/TIME: 12/02/2017 7:00 am REASON FOR STUDY: left flank pain - hx of stones COMPARISON: 08/21/2011. TECHNIQUE: CT scan of the abdomen and pelvis performed without intravenous or oral contrast. Images reviewed with lung, soft tissue, and bone windows. Reconstructed coronal and sagittal MPR images revi ewed. All images stored on PACS. All CT scanners at this facility use dose modulation, iterative reconstruction, and/or weight based d osing when appropriate to reduce radiation dose to as low as reasonably achievable (ALARA). [facility]: Dose Right [facility]: CareDose [facility]: Dose Right [facility]: Teradose 4D [facility]: Smart Soicos RADIATION DOSE: CT Rad equipment meets quality standard of care and radiation dose reduction techniq ues were employed. CTDIvol: 11.9 mGy. DLP: 616 mGy-cm.mGy. LIMITATIONS: None. FINDINGS: LOWER CHEST: No significant findings. No nodules or infiltrates. NON-CONTRASTED LIVER, SPLEEN, ADRENALS: Evaluation limited by lack of IV contrast. No identified sign ificant masses. PANCREAS: No masses. No peripancreatic inflammatory changes. GALLBLADDER: Surgically absent. RIGHT KIDNEY AND URETER: No suspicious masses. Assessment limited by lack of IV contrast. A few tin y calyceal calcifications. No hydronephrosis or hydroureter. LEFT KIDNEY AND URETER: No suspicious masses. Assessment limited by lack of IV contrast. Possible t iny 1 mm calculus in the distal ureter (axial series 3, image 75). Minimal hydronephrosis and hydro ureter. AORTA AND RETROPERITONEUM: No aneurysm. No retroperitoneal masses or adenopathy. BOWEL AND PERITONEAL CAVITY: No obvious masses or inflammatory changes. No free fluid. APPENDIX: Normal. PELVIS, BLADDER, AND ABDOMINAL WALL:No abnormal masses. No free fluid. Bladder normal. BONES: No significant findings. Chronic sclerosis along the sacroiliac joints, right greater than le ft. OTHER: No other significant finding. IMPRESSION: 1. POSSIBLE TINY 1 MM CALCULUS IN THE DISTAL LEFT URETER. MINIMAL HYDRONEPHROSIS AND HYDROURETER. 2. NONOBSTRUCTING CALYCEAL CALCULI IN THE RIGHT KIDNEY. 3. CHRONIC SCLEROSIS ALONG THE SACROILIAC JOINTS. 4. NO OTHER SIGNIFICANT OR ACUTE PROCESS IN THE ABDOMEN OR PELVIS. COMMENT: Quality ID # [id number]: Final reports with documentation of one or more dose reduction techniques (e.g., Automated exposure control, adjustment of the mA and/or kV according to patient size, use of iterative reconstruction technique) TECHNICAL DOCUMENTATION: JOB ID: [id number] [employer]- All Rights Reserved Reading location - IP/workstation name: [email or web address]
[2017-12-02 09:12] VITALS: BP 122/97
== END 2017-12-02 09:12 | disposition home or self-care (01) ==
LOC: ER 05:00
DX: N20.1 Calculus of ureter (principal); R11.0 Nausea; R30.0 Dysuria; R10.9 Unspecified abdominal pain; R10.32 Left lower quadrant pain; Z79.899 Other long term (current) drug therapy
CPT/HCPCS: 99284; 96361; 96374; 36415; 84703; 85025; 80053; 81001; 74176; S0119; J1885; J7030